=== PATIENT | female | born 1970 | race Two or more races ===

== ENCOUNTER 2025-01-04 09:17 | Outpatient (AMB) | payer MEDICAID, SELFPAY ==
--- NOTE | 2025-01-04 09:40 | PD.ORTHCLVIS ---
Vital signs 01/04/25 09:41 Height 1.63 m Height Method Stated Weight 121.733 kg Weight Measurement Method Standing Scale BMI 46.0 BP 156/94 H Blood Pressure Source Automatic Cuff Blood Pressure Location Left Upper Arm Position Sitting Respiration 18 Pulse 64 Pulse Source Monitor Temp 97.7 F Temp Source Temporal Artery Scan Pulse Oximetry (%) 97 Oxygen Delivery Method Room Air Med/Allergies Allergies & Medications Allergies No Known Allergies Allergy (Verified 01/04/25 09:42) Medication Reconciliation acetaminophen 500 mg/15 mL oral liquid 500 mg PO QID PRN 01/04/25 [History Confirmed 01/04/25] lisinopril 20 mg-hydrochlorothiazide 12.5 mg tablet 1 tab PO QDAY 01/04/25 [History Confirmed 01/04/25] Exam Exam Patient is in no acute distress and is cooperative with the examination today. Breathing is nonlabored. In no respiratory distress. Patient has no paraspinal tenderness. Spinal deformity cannot be appreciated. The gait of the patient is nonantalgic Bilateral extremities were evaluated and demonstrates sensation intact to light touch. Palpable pedal pulses are present. No significant edema is present. Bilateral knees were examined and the patient has full strength and range of motion. Patient is tender to palpation laterally on the left The right hip was examined. Patient was able to flex to 90 degrees, adduct to 30 degrees, abduct to 40 degrees, internally rotate to 5 degrees, and externally rotate to 20 degrees. Patient has a positive logroll and Stinchfield is positive The left hip was examined. Patient was able to flex to 90 degrees, adduct to 30 degrees, abduct to 40 degrees, internally rotate to 20 degrees, and externally rotate to 20 degrees. Patient has a negative logroll. The stinchfield is negative. 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 We discussed different treatment options. She would need to lose weight as her BMI is currently 46 we discussed that she is at high risk for medical complications and infection because of this. We recommend weight loss. We will also evaluate her spine and her left knee as she will need weightbearing x-rays of her left knee. Office Procedures GNS Level of Care Nursing/Assessment Patient Status: Initial/New Patient Nursing Assessment/Reassesment: Medication Reconciliation, Update PMH in EMR and Vital Signs Coordination of Care: Complex Care and Chronic Disease 1-5, Education Complex Pt/Fam, Consent,records obtained, informed consent, 1 Ins Authorization, Lab and Imaging orders, Results/Orders obtained and Staff clarify orders New Patient Charge New Patient Point Assignment: 1124 New Patient Point Charge: FAMILY CONSUMER SCIENCE FCS TEACHER Level 4 ([id number]) MA Intake Visit Data Collection New Patient or Established: New Patient (never been to [facility]) Reason for Visit:: RIGHT HIP/BL KNEE PAIN Seen by Clinical Staff ONLY (RN/MA): No 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: Yes PCP or OBGYN visit in last 3 months: Yes Hx Now: No Do You Feel Safe at Home: Yes Authorities Contacted: N/A Questionairres Past Medical History Past Medical History Have you ever been diagnosed with any of the following: Cardiology Problems Hypertension: Yes Respiratory Problems Smoking: No (STOPPED 2022) Smoking Exposure: No Subjective Visit Visit for: new patient, hip and knee Immunization / Flu Flu Vaccine in the Last 12 Months: Yes Flu Vaccine Exclusion Criteria: Already Received History of Present Illness Chief complaint: Back hip and knee pain Trupti is a morbidly obese 54-year-old female with pain in her right hip back and bilateral knees. This has been ongoing for a while. She has had injections in her back only. She reports the left knee pain is on the outside of her knee and that she has some pain in her groin. She is using a walker and reports the back is what is hurting her the most Personal History Occupation: UNEMPLOYED Pain Pain level (0-10): 10 Pain duration: ALL DAY Pain location: groin, inside (medial), outside (lateral), anterior and posterior Pain quality: sharp, dull and aching Pain timing: night, increases with activity and stairs Associated signs & symptoms: numbness, weakness and stiffness Ambulatory data Ambulatory device: walker Treatments Number of previous injections: 0 Improvement with previous injections: No Improvement with PT: No Improvement with NSAIDS: no Review of Systems Review of Systems: All systems negative unless otherwise noted in HPI.
[2025-01-04 09:41] VITALS: BP 156/94; PULSE 64; RESP 18; TEMP 36.5; O2SAT 97; BMI 46.0
--- NOTE | 2025-01-04 10:07 | XR_ITS ---
Examination: Lumbar spine 3 views TECHNIQUE: AP lateral coned lateral lower lumbar spine 3 views Exam date and time: August 06, 2025 1031 hours INDICATIONS: Low back pain radiating to left hip beginning 6 months ago. FINDINGS: Prominent osteopenia No lumbar fracture Mild lumbar spondylosis Minimal disc narrowing L5-S1 IMPRESSION: Minimal disc narrowing L5-S1
--- NOTE | 2025-01-04 10:07 | XR_ITS ---
Examination: Bilateral knees 2 views Right lateral knee left lateral knee 2 views Right axial knee left axial knee 2 views TECHNIQUE: Bilateral AP knees standing single view, bilateral PA knees standing single view flexion Standing right lateral knee left lateral knee 2 views Right axial knee left axial knee 2 views total 6 views Exam date and time: 29/04/2025 1021 hours INDICATIONS: Bilateral knee pain beginning 6 months ago FINDINGS: Moderate osteopenia Advanced narrowing medial joint space left knee Mild narrowing medial joint space right knee Bilateral moderate osteoarthritis patellofemoral joints No fractures IMPRESSION: Osteoarthritis as above, including advanced narrowing medial joint space left knee
== END 2025-01-04 10:09 | disposition home or self-care (01) ==
PROVIDERS: Supervising Provider Orthopaedic Surgery Adult Reconstructive Orthopaedic Surgery; Visit Provider Orthopaedic Surgery Adult Reconstructive Orthopaedic Surgery
DX: M16.11 Unilateral primary osteoarthritis, right hip (principal); M25.551 Pain in right hip; M25.562 Pain in left knee; M25.561 Pain in right knee; M54.9 Dorsalgia, unspecified; I10 Essential (primary) hypertension; E66.01 Morbid (severe) obesity due to excess calories; Z68.42 Body mass index [BMI] 45.0-49.9, adult
CPT/HCPCS: 72100; 73564; 99204; G0463

== ENCOUNTER 2025-02-06 08:44 | Outpatient (AMB) | payer MEDICAID, SELFPAY ==
[2025-02-06 09:19] VITALS: BP 93/64; PULSE 69; RESP 17; TEMP 36.7; O2SAT 98; BMI 44.7
--- NOTE | 2025-02-06 09:19 | PD.ORTHCLVIS ---
Vital signs 02/06/25 09:19 Height 1.63 m Height Method Stated Weight 118.955 kg Weight Measurement Method Standing Scale BMI 44.7 BP 93/64 Blood Pressure Source Automatic Cuff Blood Pressure Location Right Upper Arm Position Sitting Respiration 17 Pulse 69 Pulse Source Monitor Temp 98.1 F Temp Source Temporal Artery Scan Pulse Oximetry (%) 98 Oxygen Delivery Method Room Air Med/Allergies Allergies & Medications Allergies No Known Allergies Allergy (Verified 02/06/25 09:20) Medication Reconciliation acetaminophen 500 mg/15 mL oral liquid 500 mg PO QID PRN 01/04/25 [History Confirmed 02/06/25] lisinopril 20 mg-hydrochlorothiazide 12.5 mg tablet 1 tab PO QDAY 01/04/25 [History Confirmed 02/06/25] semaglutide (weight loss) 0.5 mg/0.5 mL subcutaneous pen injector (Wegovy) 0.5 mg subcut QWEEK 02/06/25 [History Confirmed 02/06/25] Exam Exam Patient is in no acute distress and is cooperative with the examination today. Breathing is nonlabored. In no respiratory distress. Patient has no paraspinal tenderness. Spinal deformity cannot be appreciated. The gait of the patient is nonantalgic Bilateral extremities were evaluated and demonstrates sensation intact to light touch. Palpable pedal pulses are present. No significant edema is present. Bilateral knees were examined and the patient has full strength and range of motion. Patient is tender to palpation laterally on the left The right hip was examined. Patient was able to flex to 90 degrees, adduct to 30 degrees, abduct to 40 degrees, internally rotate to 5 degrees, and externally rotate to 20 degrees. Patient has a positive logroll and Stinchfield is positive The left hip was examined. Patient was able to flex to 90 degrees, adduct to 30 degrees, abduct to 40 degrees, internally rotate to 20 degrees, and externally rotate to 20 degrees. Patient has a negative logroll. The stinchfield is negative. 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 She has severe left knee arthritis on x-ray as well Assessment and Plan Problem List (1) Arthritis of right hip: Status: Acute Plan: Patient is a 54-year-old female with right hip pain and right hip arthritis of significant severity. We discussed different treatment options. She would need to lose weight as her BMI is currently 44 we discussed that she is at high risk for medical complications and infection because of this. She is lost about 10 pounds since we last saw her Which was 1 month ago. We recommend weight loss. Office Procedures GNS Level of Care Nursing/Assessment Patient Status: Established Patient Nursing Assessment/Reassesment: Medication Reconciliation, Update PMH in EMR and Vital Signs Coordination of Care: Complex Care and Chronic Disease 1-5, Consent,records obtained, informed consent, Education Simp Pt/Fam, Results/Orders obtained and Staff clarify orders Established Patient Charge Established Patient Point Assignment: 90 Established Patient Point Charge: EP Level 3 (80-115) MA Intake Visit Data Collection New Patient or Established: Established Patient (seen at [facility] within 3 years) Reason for Visit:: XRAY RESULT/ WEIGHTLOSS FU Seen by Clinical Staff ONLY (RN/MA): No 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 PCP or OBGYN visit in last 3 months: Yes Hx Now: No Do You Feel Safe at Home: Yes Authorities Contacted: N/A Questionairres Past Medical History Past Medical History Have you ever been diagnosed with any of the following: Cardiology Problems Hypertension: Yes Respiratory Problems Smoking: No (STOPPED 2022) Smoking Exposure: No Subjective Visit Visit for: follow up visit and knee (BILATERAL KNEE ) Immunization / Flu Flu Vaccine in the Last 12 Months: Yes Flu Vaccine Exclusion Criteria: Already Received History of Present Illness Chief complaint: Back hip and knee pain Trupti is a morbidly obese 54-year-old female with pain in her right hip back and bilateral knees. This has been ongoing for a while. She has had injections in her back only. She reports the left knee pain is on the outside of her knee and that she has some pain in her groin. She is using a walker and reports the back is what is hurting her the most Personal History Occupation: UNEMPLOYED Red flag PMH: none Pain Pain level (0-10): 9 Pain duration: 10/2024 Pain location: anterior Pain quality: sharp and aching Pain timing: increases with activity Associated signs & symptoms: stiffness Ambulatory data Ambulatory device: walker Walking distance (blocks): 0 Walking distance (minutes): 5 Treatments Number of previous injections: 0 Improvement with previous injections: No Number of Physical Therapy sessions: 15 Improvement with PT: Yes Improvement with NSAIDS: n/a Review of Systems Review of Systems: All systems negative unless otherwise noted in HPI.
== END 2025-02-06 09:41 | disposition home or self-care (01) ==
LOC: HODSRG 08:44
PROVIDERS: Supervising Provider Orthopaedic Surgery Adult Reconstructive Orthopaedic Surgery; Visit Provider Orthopaedic Surgery Adult Reconstructive Orthopaedic Surgery
DX: M16.11 Unilateral primary osteoarthritis, right hip (principal); M25.551 Pain in right hip; M25.562 Pain in left knee; M25.561 Pain in right knee; E66.01 Morbid (severe) obesity due to excess calories; Z68.41 Body mass index [BMI] 40.0-44.9, adult; I10 Essential (primary) hypertension
CPT/HCPCS: 99213; G0463

== ENCOUNTER 2025-06-05 15:00 | Outpatient (AMB) | payer MEDICAID, SELFPAY ==
--- NOTE | 2025-06-05 15:15 | PD.ORTHCLVIS ---
Vital signs 06/05/25 15:16 Height 1.68 m Height Method Stated Weight 111.158 kg Weight Measurement Method Standing Scale BMI 39.5 BP 145/84 H Blood Pressure Source Automatic Cuff Blood Pressure Location Left Upper Arm Position Sitting Respiration 18 Pulse 68 Pulse Source Monitor Temp 97.4 F Temp Source Temporal Artery Scan Pulse Oximetry (%) 98 Oxygen Delivery Method Room Air Med/Allergies Allergies & Medications Allergies No Known Allergies Allergy (Verified 06/05/25 15:22) Medication Reconciliation acetaminophen 500 mg/15 mL oral liquid 500 mg PO QID PRN 01/04/25 [History Confirmed 06/05/25] lisinopril 20 mg-hydrochlorothiazide 12.5 mg tablet 1 tab PO QDAY 01/04/25 [History Confirmed 06/05/25] semaglutide (weight loss) 0.5 mg/0.5 mL subcutaneous pen injector (Wegovy) 0.5 mg subcut QWEEK 02/06/25 [History Confirmed 06/05/25] Exam Exam Patient is in no acute distress and is cooperative with the examination today. Breathing is nonlabored. In no respiratory distress. Patient has no paraspinal tenderness. Spinal deformity cannot be appreciated. The gait of the patient is nonantalgic Bilateral extremities were evaluated and demonstrates sensation intact to light touch. Palpable pedal pulses are present. No significant edema is present. Bilateral knees were examined and the patient has full strength and range of motion. Patient is tender to palpation laterally on the left The right hip was examined. Patient was able to flex to 90 degrees, adduct to 30 degrees, abduct to 40 degrees, internally rotate to 5 degrees, and externally rotate to 20 degrees. Patient has a positive logroll and Stinchfield is positive The left hip was examined. Patient was able to flex to 90 degrees, adduct to 30 degrees, abduct to 40 degrees, internally rotate to 20 degrees, and externally rotate to 20 degrees. Patient has a negative logroll. The stinchfield is negative. 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 She has severe left knee arthritis on x-ray as well Assessment and Plan Problem List (1) Arthritis of right hip: Status: Acute Plan: Patient is a 54-year-old female with right hip pain and right hip arthritis of significant severity. We discussed different treatment options. She would need to lose weight as her BMI is currently 39 we discussed that she is at high risk for medical complications and infection because of this. She has lost a significant amount of weight since we last saw her Which was 3 month ago. We recommend continued weight loss. We also recommend a hip injection to help differentiate her back from hip symptoms. We want to see her back 3-4 weeks after the hip injection (2) Back pain: Status: Acute Office Procedures GNS Level of Care Nursing/Assessment Patient Status: Established Patient Nursing Assessment/Reassesment: Medication Reconciliation, Update PMH in EMR and Vital Signs Coordination of Care: Complex Care and Chronic Disease 1-5, Education Complex Pt/Fam, Consent,records obtained, informed consent, Results/Orders obtained and Staff clarify orders Special Needs: Language special needs Established Patient Charge Established Patient Point Assignment: 95 Established Patient Point Charge: EP Level 3 (80-115) MA Intake Visit Data Collection New Patient or Established: Established Patient (seen at [facility] within 3 years) Reason for Visit:: FOLLOW UP WEIGHT LOSS Seen by Clinical Staff ONLY (RN/MA): No Promotions Coordinator Required: No PCP or OBGYN visit in last 3 months: Yes Hx Now: No Do You Feel Safe at Home: Yes Authorities Contacted: N/A Questionairres Past Medical History Past Medical History Have you ever been diagnosed with any of the following: Cardiology Problems Hypertension: Yes Respiratory Problems Smoking: No (STOPPED 2022) Smoking Exposure: No Subjective Visit Visit for: follow up visit and knee (BILATERAL KNEE ) Immunization / Flu Flu Vaccine in the Last 12 Months: Yes Flu Vaccine Exclusion Criteria: Already Received History of Present Illness Chief complaint: Back hip and knee pain Trupti is a morbidly obese 54-year-old female with pain in her right hip back and bilateral knees. This has been ongoing for a while. She has had injections in her back only. She reports the left knee pain is on the outside of her knee and that she has some pain in her groin. She is using a walker and reports the back is what is hurting her the most. She has lost a significant amounbt of weight in her knees Personal History Occupation: UNEMPLOYED Red flag PMH: none BMI Counceling provided: Yes Pain Pain level (0-10): 9 Pain duration: 10/2024 Pain location: anterior Pain quality: sharp and aching Pain timing: increases with activity Associated signs & symptoms: stiffness Ambulatory data Ambulatory device: walker Walking distance (blocks): 0 Walking distance (minutes): 5 Treatments Number of previous injections: 0 Improvement with previous injections: No Number of Physical Therapy sessions: 15 Improvement with PT: Yes Improvement with NSAIDS: n/a Review of Systems Review of Systems: All systems negative unless otherwise noted in HPI.
[2025-06-05 15:16] VITALS: BP 145/84; PULSE 68; RESP 18; TEMP 36.3; O2SAT 98; BMI 39.5
== END 2025-06-05 15:44 | disposition home or self-care (01) ==
PROVIDERS: Supervising Provider Orthopaedic Surgery Adult Reconstructive Orthopaedic Surgery; Visit Provider Orthopaedic Surgery Adult Reconstructive Orthopaedic Surgery
DX: M16.11 Unilateral primary osteoarthritis, right hip (principal); M25.551 Pain in right hip; M54.9 Dorsalgia, unspecified; E66.01 Morbid (severe) obesity due to excess calories; Z68.39 Body mass index [BMI] 39.0-39.9, adult; Z71.3 Dietary counseling and surveillance; I10 Essential (primary) hypertension
CPT/HCPCS: 99213; G0463

== ENCOUNTER 2025-08-02 15:34 | Outpatient (AMB) | payer MEDICAID, SELFPAY ==
--- NOTE | 2025-08-02 15:40 | PD.ORTHCLVIS ---
Vital signs 08/02/25 15:47 Height 1.68 m Height Method Measured Weight 107.246 kg Weight Measurement Method Standing Scale BMI 38.0 BP 131/83 H Blood Pressure Source Automatic Cuff Blood Pressure Location Left Upper Arm Position Sitting Respiration 19 Pulse 78 Pulse Source Monitor Temp 98.0 F Temp Source Temporal Artery Scan Pulse Oximetry (%) 98 Oxygen Delivery Method Room Air Med/Allergies Allergies & Medications Allergies No Known Allergies Allergy (Verified 08/02/25 15:49) Medication Reconciliation acetaminophen 500 mg/15 mL oral liquid 500 mg PO QID PRN 01/04/25 [History Confirmed 08/02/25] lisinopril 20 mg-hydrochlorothiazide 12.5 mg tablet 1 tab PO QDAY 01/04/25 [History Confirmed 08/02/25] semaglutide (weight loss) 0.5 mg/0.5 mL subcutaneous pen injector (Wegovy) 0.5 mg subcut QWEEK 02/06/25 [History Confirmed 08/02/25] Exam Exam Patient is in no acute distress and is cooperative with the examination today. Breathing is nonlabored. In no respiratory distress. Patient has no paraspinal tenderness. Spinal deformity cannot be appreciated. The gait of the patient is nonantalgic Bilateral extremities were evaluated and demonstrates sensation intact to light touch. Palpable pedal pulses are present. No significant edema is present. Bilateral knees were examined and the patient has full strength and range of motion. Patient is tender to palpation laterally on the left The right hip was examined. Patient was able to flex to 90 degrees, adduct to 30 degrees, abduct to 40 degrees, internally rotate to 5 degrees, and externally rotate to 20 degrees. Patient has a positive logroll and Stinchfield is positive The left hip was examined. Patient was able to flex to 90 degrees, adduct to 30 degrees, abduct to 40 degrees, internally rotate to 20 degrees, and externally rotate to 20 degrees. Patient has a negative logroll. The stinchfield is negative. 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 She has severe left knee arthritis on x-ray as well Assessment and Plan Problem List (1) Arthritis of right hip: Status: Acute Plan: Patient is a 54-year-old female with right hip pain and right hip arthritis of significant severity. We discussed different treatment options. She would need to lose weight as her BMI is currently 39 we discussed that she is at high risk for medical complications and infection because of this. She has lost a significant amount of weight since we last saw her Which was 3 month ago. She received a hip injection and reports partial relief of pain with persistent pain in the back. We thus recommended that she see a hardwood flooring specialist as she has signs of spinal stenosis (2) Back pain: Status: Acute Office Procedures GNS Level of Care Nursing/Assessment Patient Status: Established Patient Nursing Assessment/Reassesment: Medication Reconciliation, Update PMH in EMR and Vital Signs Coordination of Care: Complex Care and Chronic Disease 1-5, Education Complex Pt/Fam, Consent,records obtained, informed consent, Results/Orders obtained and Staff clarify orders Special Needs: Language special needs Established Patient Charge Established Patient Point Assignment: 95 Established Patient Point Charge: EP Level 3 (80-115) MA Intake Visit Data Collection New Patient or Established: Established Patient (seen at [facility] within 3 years) Reason for Visit:: FOLLOW UP WEIGHT LOSS Seen by Clinical Staff ONLY (RN/MA): No 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 PCP or OBGYN visit in last 3 months: Yes Hx Now: No Do You Feel Safe at Home: Yes Authorities Contacted: N/A Questionairres Past Medical History Past Medical History Have you ever been diagnosed with any of the following: Cardiology Problems Hypertension: Yes Respiratory Problems Smoking: No (STOPPED 2022) Smoking Exposure: No Subjective Visit Visit for: follow up visit and knee (BILATERAL KNEE ) Immunization / Flu Flu Vaccine in the Last 12 Months: Yes Flu Vaccine Exclusion Criteria: Already Received History of Present Illness Chief complaint: Back hip and knee pain Trupti is a morbidly obese 54-year-old female with pain in her right hip back and bilateral knees. This has been ongoing for a while. She has had injections in her back only. She reports the left knee pain is on the outside of her knee and that she has some pain in her groin. She is using a walker and reports the back is what is hurting her the most. She has lost a significant amount of weight. She received an intrarticular hip injection and reports that there is an improvement in groin pain but she has significant back pain still. Personal History Occupation: UNEMPLOYED Red flag PMH: none BMI Counceling provided: Yes Pain Pain level (0-10): 6 Pain duration: 10/2024 Pain location: groin Pain quality: dull and aching Pain timing: increases with activity and stairs Associated signs & symptoms: none Ambulatory data Ambulatory device: walker Walking distance (blocks): 0 Walking distance (minutes): 5 Treatments Number of previous injections: 1 (07/21/2025) Improvement with previous injections: Yes Number of Physical Therapy sessions: 15 Improvement with PT: Yes Improvement with NSAIDS: n/a Review of Systems Review of Systems: All systems negative unless otherwise noted in HPI.
[2025-08-02 15:47] VITALS: BP 131/83; PULSE 78; RESP 19; TEMP 36.7; O2SAT 98; BMI 38.0
== END 2025-08-02 15:55 | disposition home or self-care (01) ==
LOC: HODSRG 15:34
PROVIDERS: Supervising Provider Orthopaedic Surgery Adult Reconstructive Orthopaedic Surgery; Visit Provider Orthopaedic Surgery Adult Reconstructive Orthopaedic Surgery
DX: M25.551 Pain in right hip (principal); M25.562 Pain in left knee; M25.561 Pain in right knee; E66.01 Morbid (severe) obesity due to excess calories; Z68.38 Body mass index [BMI] 38.0-38.9, adult; M16.11 Unilateral primary osteoarthritis, right hip; M54.9 Dorsalgia, unspecified
CPT/HCPCS: 99213; G0463

== ENCOUNTER 2025-10-09 14:28 | Outpatient (AMB) | payer MEDICAID, SELFPAY ==
--- NOTE | 2025-10-09 14:46 | PD.ORTHCLVIS ---
Vital signs 10/09/25 14:47 Height 1.68 m Height Method Stated Weight 105.857 kg Weight Measurement Method Standing Scale BMI 37.5 BP 172/92 H Blood Pressure Source Automatic Cuff Blood Pressure Location Left Upper Arm Position Sitting Respiration 18 Pulse 79 Pulse Source Monitor Temp 97.5 F Temp Source Temporal Artery Scan Pulse Oximetry (%) 97 Oxygen Delivery Method Room Air Med/Allergies Allergies & Medications Allergies No Known Allergies Allergy (Verified 08/02/25 15:49) Exam Exam Patient is in no acute distress and is cooperative with the examination today. Breathing is nonlabored. In no respiratory distress. Patient has no paraspinal tenderness. Spinal deformity cannot be appreciated. The gait of the patient is nonantalgic Bilateral extremities were evaluated and demonstrates sensation intact to light touch. Palpable pedal pulses are present. No significant edema is present. Bilateral knees were examined and the patient has full strength and range of motion. Patient is tender to palpation laterally on the left The right hip was examined. Patient was able to flex to 90 degrees, adduct to 30 degrees, abduct to 40 degrees, internally rotate to 5 degrees, and externally rotate to 20 degrees. Patient has a positive logroll and Stinchfield is positive The left hip was examined. Patient was able to flex to 90 degrees, adduct to 30 degrees, abduct to 40 degrees, internally rotate to 20 degrees, and externally rotate to 20 degrees. Patient has a negative logroll. The stinchfield is negative. 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 She has severe left knee arthritis on x-ray as well Assessment and Plan Problem List (1) Arthritis of right hip: Status: Acute Plan: Patient is a 54-year-old female with right hip pain and right hip arthritis of significant severity. We discussed different treatment options. She would need to lose weight as her BMI is currently 37.5 we discussed that she is at high risk for medical complications and infection because of this. She has lost a significant amount of weight since we last saw her Which was 3 month ago. We will plan to do this from a lateral approach The nature and purpose of the total hip replacement, alternative method(s) of treatment, the material risks involved, and the possibility of complications were fully explained to the patient. The patient does NOT have any of the following contraindications to RANJEET: - Active infection of the hip joint, OR - Active systemic bacteremia, OR - Active skin infection or open wound at surgical site, OR - Neuropathic arthritis, OR - Severe, rapidly progressive neurological disease, OR - Severe medical condition that makes risks of the surgery outweigh the potential benefit The patient was told the most common risks and complications associated with a total hip replacement include, but are not limited to: blood clots in the leg, fatal pulmonary embolism, dislocation of the prosthesis, intraoperative and postoperative fractures of the femur or acetabulum, infection, failure of the prosthesis or grafting materials, complications from anesthesia, reactions to blood transfusions, postoperative leg length inequality, instability of the hip replacement, nerve damage or injury, vascular injury, delayed wound healing, infection, other injury or even . In addition, there are risks associated with anesthesia given during this operation. Also, the patient was told that after undergoing a total hip replacement there may still be persistent pain or disability. The patient was informed that the success of this operation in part depends upon the mechanical devices which are going to be implanted and that these devices can fail or malfunction, and may need to be repaired or replaced and there are no guarantees as to the longevity of this device or its parts and that it or its parts could fail prematurely. The patient was also notified that during the course of surgery, there may be a need to use bone graft from donors, and that any bone graft used will be carefully screened for communicable diseases, including AIDS, hepatitis, Sterling-Creutzfeldt, or other diseases, but despite the screening procedures, there is a small chance that they could contract one of these diseases. Finally, the patient was asked to follow completely and fully with all advice and recommended treatments, and that recovery and ultimate outcome are affected by their compliance with recommended treatment. We discussed the risks, benefits and treatment alternatives, and the patient is interested in proceeding with surgery. We will try to set this up as expeditiously as possible. (2) Back pain: Status: Acute Office Procedures GNS Level of Care Nursing/Assessment Patient Status: Established Patient Nursing Assessment/Reassesment: Medication Reconciliation, Update PMH in EMR and Vital Signs Coordination of Care: Complex Care and Chronic Disease 1-5, Education Complex Pt/Fam, Consent,records obtained, informed consent, Results/Orders obtained and Staff clarify orders Established Patient Charge Established Patient Point Assignment: 95 Established Patient Point Charge: Level 3 (80-115) MA Intake Visit Data Collection New Patient or Established: Established Patient (seen at [facility] within 3 years) Reason for Visit:: FOLLOW UP WEIGHT LOSS Seen by Clinical Staff ONLY (RN/MA): No Public Speaking Instructor Required: Yes PCP or OBGYN visit in last 3 months: Yes Hx Now: No Do You Feel Safe at Home: Yes Authorities Contacted: N/A Questionairres Past Medical History Past Medical History Have you ever been diagnosed with any of the following: Cardiology Problems Hypertension: Yes Respiratory Problems Smoking: No (STOPPED 2022) Smoking Exposure: No Subjective Visit Visit for: follow up visit and knee (BILATERAL KNEE ) Immunization / Flu Flu Vaccine in the Last 12 Months: Yes Flu Vaccine Exclusion Criteria: Already Received History of Present Illness Chief complaint: Back hip and knee pain Trupti is a morbidly obese 54-year-old female with pain in her right hip back and bilateral knees. This has been ongoing for a while. She has had injections in her back only. She reports the left knee pain is on the outside of her knee and that she has some pain in her groin. She is using a walker and reports the back is what is hurting her the most. She has lost a significant amount of weight. She received an intrarticular hip injection and reports that there is an improvement in groin pain but she has significant back pain still. The pain returned subsequently after one month Personal History Occupation: UNEMPLOYED Red flag PMH: none BMI Counceling provided: Yes Pain Pain level (0-10): 6 Pain duration: 10/2024 Pain location: groin Pain quality: dull and aching Pain timing: increases with activity and stairs Associated signs & symptoms: none Ambulatory data Ambulatory device: walker Walking distance (blocks): 0 Walking distance (minutes): 5 Treatments Number of previous injections: 1 (07/21/2025) Improvement with previous injections: Yes Number of Physical Therapy sessions: 15 Improvement with PT: Yes Improvement with NSAIDS: n/a Review of Systems Review of Systems: All systems negative unless otherwise noted in HPI.
[2025-10-09 14:47] VITALS: BP 172/92; PULSE 79; RESP 18; TEMP 36.4; O2SAT 97; BMI 37.5
== END 2025-10-09 15:23 | disposition home or self-care (01) ==
LOC: HODSRG 14:28
PROVIDERS: Supervising Provider Orthopaedic Surgery Adult Reconstructive Orthopaedic Surgery; Visit Provider Orthopaedic Surgery Adult Reconstructive Orthopaedic Surgery
DX: M16.11 Unilateral primary osteoarthritis, right hip (principal); M25.551 Pain in right hip; M54.9 Dorsalgia, unspecified; M25.562 Pain in left knee; M25.561 Pain in right knee; I10 Essential (primary) hypertension; E66.01 Morbid (severe) obesity due to excess calories; Z68.37 Body mass index [BMI] 37.0-37.9, adult
CPT/HCPCS: 99213; G0463